=== PATIENT | male | born 1945 ===

== ENCOUNTER → 2018-07-15 | Outpatient (CLI) | payer MEDICARE, OTHER | LOC: PLD 14:03 → LAB SHORT 14:03 | DX: D48.5 Neoplasm of uncertain behavior of skin (principal) | CPT/HCPCS: 88305 ==

== ENCOUNTER → 2019-04-15 | Outpatient (CLI) | payer MEDICARE, OTHER | END | disposition home or self-care (01) | LOC: LAB 13:41 → LAB SHORT 13:41 | DX: D48.5 Neoplasm of uncertain behavior of skin (principal) | CPT/HCPCS: 88305 ==

== ENCOUNTER → 2019-05-05 | Outpatient (CLI) | payer MEDICARE, OTHER | END | disposition home or self-care (01) | LOC: LAB SHORT 13:11 → PLD 13:11 | DX: C44.212 Basal cell carcinoma of skin of right ear and external auricular canal (principal) | CPT/HCPCS: 88305 ==